=== PATIENT | male | born 1940 | race Caucasian/White ===

== ENCOUNTER → 2020-12-31 | Outpatient (CLI) | payer MEDICARE ==
--- NOTE | 2020-12-31 12:16 | CT ---
EXAMINATION TYPE: CT urogram wo/w con DATE OF EXAM: 12/31/2020 COMPARISON: None HISTORY: 80-year-old male C67.9, Bladder cancer TECHNIQUE: Contiguous axial scanning of the abdomen and pelvis performed without and with IV Contrast , patient injected with 80 mL of Isovue 300. Delayed images through the kidneys and bladder were obta ined. Coronal/sagittal reconstructions performed. 3-D reconstructions generated on a dedicated workst [email or web address]. CT DLP: 1964 mGycm Automated exposure control for dose reduction was used. FINDINGS: Heart normal size without pericardial effusion. Lung bases clear without pleural effusion. Ectatic lower descending thoracic aorta 2.9 cm. Some geographic low-attenuation at the ford hepatis suggesting focal fat. No other liver lesion is i dentified. Portal venous system is patent. No biliary ductal dilatation. Small layering gallstones measuring up to 8 mm. No abnormal gallbladder distention. Adrenal glands, spleen, pancreas within normal limits. Moderate atherosclerotic calcifications abdominal aorta and common iliac arteries. 4 mm nonobstructive medial posterior midpole right renal calculus. Symmetric uptake and excretion of contrast material kidneys. No hydronephrosis on either side. Scattered subcentimeter hypodensities within both kidneys, largest measures 1.1 cm on the right and 1 .3 cm on the left too small for accurate CT characterization, most likely cysts. No suspicious renal mass is identified. No abnormal filling defects identified within the renal collecting systems are al alicja the course of either ureters. 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 No dilated small genie wel, free fluid, free air. Scattered surgical clips within the left anterior omentum. A few nonenlarged mesenteric lymph nodes are noted. No mesenteric or retroperitoneal lymphadenopathy by CT size criteria. Surgical clip just behind the deep left inguinal ring. Moderate circumferential bladder wall thickeni ng. The rectum is surgically absent and the bladder has become patulous extending back and inferiorly to the pelvic floor. Prostate gland is mildly enlarged at 4.9 cm wide. There is some heterogeneity t hat could represent underlying cysts or changes related to BPH. No abnormal fluid collection in the p briseida or pelvic lymphadenopathy seen. Bones: Degenerative change of the hips. Bridging bony ankylosis of the SI joints There is an abnormal soft tissue lesion measuring 2.4 cm with loss of the anterior cortex of the ante rior left iliac crest, axial image 41. Moderate multilevel degenerative changes in the lumbar spine. IMPRESSION: 1. NUMEROUS BILATERAL CORTICAL HYPODENSITIES IN BOTH KIDNEYS, LARGEST MEASURING 1.3 CM. MOST ARE TOO SMALL FOR ACCURATE CT CHARACTERIZATION. ALL OF THESE LIKELY REPRESENT BENIGN CORTICAL CYSTS. NO SUSPI CIOUS RENAL OR UROTHELIAL LESION IDENTIFIED. 2. ABNORMAL 2.4 CM SOFT TISSUE LESION ARISING FROM THE ANTERIOR CORTEX OF THE LEFT ILIAC CREST HIGHLY SUSPICIOUS FOR A SOLITARY OSSEOUS METASTASIS. 3. MODERATE CIRCUMFERENTIAL BLADDER WALL THICKENING COULD REFLECT CHRONIC BILATERAL HIP HYPERTROPHY, CYSTITIS, OR CHRONIC POSTTREATMENT CHANGE. CLINICALLY CORRELATE. 4. PROSTATOMEGALY AT 4.9 CM WIDE. THERE IS HETEROGENEOUS DENSITY OF THE PROSTATE GLAND THAT COULD REF LECT CHANGES OF BPH. CORRELATE WITH PSA VALUES AND PATIENT'S SYMPTOMS. 5. 4 MM NONOBSTRUCTIVE RIGHT RENAL CALCULUS. STATUS POST TOTAL COLECTOMY WITH A RIGHT LOWER QUADRANT ILEOSTOMY. CHOLELITHIASIS.
== END | disposition home or self-care (01) ==
LOC: RADCTMAIN 09:36
PROVIDERS: ATTEND Urology
DX: C67.9 Malignant neoplasm of bladder, unspecified (principal); N20.0 Calculus of kidney; N40.0 Benign prostatic hyperplasia without lower urinary tract symptoms; K80.20 Calculus of gallbladder without cholecystitis without obstruction; M79.9 Soft tissue disorder, unspecified; R93.422 Abnormal radiologic findings on diagnostic imaging of left kidney; Z90.49 Acquired absence of other specified parts of digestive tract; Z93.2 Ileostomy status; Z88.1 Allergy status to other antibiotic agents; Z88.5 Allergy status to narcotic agent
CPT/HCPCS: 82565; 84520; 74178; 36415; 74400; Q9967

== ENCOUNTER → 2021-10-17 | Outpatient (CLI) | payer MEDICARE ==
--- NOTE | 2021-10-17 13:48 | NM ---
EXAMINATION TYPE: NM bone scan whole body DATE OF EXAM: 10/17/2021 COMPARISON: CT urogram December 31, 2020. HISTORY: Bladder cancer. Delayed whole-body scanning was performed following the injection of 23.7 mCi Tc 99m MDP. Images acq uired 3 hours post injection. Whole-body images in anterior and posterior projection along with addit ional spot images of the thorax abdomen and pelvis. FINDINGS: No suspicious increased radiotracer uptake to suggest metastatic disease to the bone or oth er suspicious abnormality. IMPRESSION: As above.
== END | disposition home or self-care (01) ==
LOC: RADNMMAIN 09:43
PROVIDERS: ATTEND Internal Medicine Hematology & Oncology
DX: C67.9 Malignant neoplasm of bladder, unspecified (principal)
CPT/HCPCS: 78306; A9503

== ENCOUNTER → 2021-12-15 | Outpatient (CLI) | payer MEDICARE ==
--- NOTE | 2021-12-15 10:54 | CT ---
EXAMINATION TYPE: CT ChestAbdPelvis wo con DATE OF EXAM: 12/15/2021 COMPARISON: CT urogram December 31, 2020. Nuclear medicine whole body bone scan October 17, 2021 HISTORY: Bladder Cancer, Hx of diverticulitis with permanent ostomy CT DLP: 922 mGycm. Automated Exposure Control for Dose Reduction was Utilized. TECHNIQUE: CT scan of the thorax, abdomen and pelvis is performed without IV contrast. FINDINGS: LUNGS: Moderate underlying emphysematous change. In the periphery of the right upper lobe there is a 1.7 x 1.0 cm nodule axial image 14 that warrants follow-up. Bibasilar linear scarring and/or atelecta sis. MEDIASTINUM: Lack of IV contrast was noted to lower sensitivity for evaluation of thoracic adenopathy . There are no greater than 1 cm hilar or mediastinal lymph nodes. Tiny pericardial effusion is seen. No cardiomegaly. Coronary artery calcification is present. LIVER/GB: Dependent calcified gallstones. Gallbladder has some distended margins without surrounding inflammatory change. PANCREAS: No significant abnormality is seen. SPLEEN: No significant abnormality is seen. ADRENALS: No significant abnormality is seen. KIDNEYS: Some cortical thinning in both kidneys consistent with product of chronic medical renal dise ase. No hydronephrosis seen bilaterally. Single 3 to 4 mm nonobstructing calculus right kidney gill l image 61. Additional punctate nonobstructing 1 to 2 mm calculus left kidney anteriorly coronal imag e 47. The bladder is prolapsed into the rectal space. BOWEL: Oral contrast does not reach slight overriding sided ostomy. Colon appears surgically absent. No suspicious bowel dilatation. GENITAL ORGANS: Mildly enlarged prostate with few punctate calcifications. LYMPH NODES: No greater than 1cm abdominal or pelvic lymph nodes are appreciated. OSSEOUS STRUCTURES: Moderate axial joint space loss in both hips. Worsening destruction of the left i liac crest with increasing soft tissue density from prior CT. In retrospect mild uptake at this level on bone scan seen best posterior projection, only mild uptake is present due to predominantly lytic or destructive component versus sclerotic lesion. OTHER: Moderate to severe calcified plaque of the aorta extends into branch vessels. IMPRESSION: Enlarging destructive lesion left iliac crest consistent with known metastatic disease. Suspicious 1.7 cm lesion periphery right upper lobe in which neoplasm cannot be excluded. Consider PE T CT to further evaluate.
== END | disposition home or self-care (01) ==
LOC: RADCTMAIN 08:33
PROVIDERS: ATTEND Internal Medicine Hematology & Oncology
DX: D09.0 Carcinoma in situ of bladder (principal)
CPT/HCPCS: 71250; 74176